=== PATIENT | female | born 1955 | race Hispanic/Latino ===

== ENCOUNTER 2021-01-03 06:31 | Emergency (ER) | payer MEDICARE, BC, OTHER ==
[~2021-01-03] VITALS: Ht 147.3 cm; Wt 51.7 kg
[2021-01-03] MEDS ORDERED: IBUPROFEN 400 MG TAB PO ONE (07:30)
[2021-01-03] MEDS ORDERED: IBUPROFEN400 MG PO (09:21)
== END 2021-01-03 11:01 | disposition home or self-care (01) ==
LOC: ER 07:04
DX: M25.562 Pain in left knee (principal); M25.572 Pain in left ankle and joints of left foot; W01.0XXA Fall on same level from slipping, tripping and stumbling without subsequent striking against object, initial encounter; Y93.01 Activity, walking, marching and hiking; I10 Essential (primary) hypertension; E11.9 Type 2 diabetes mellitus without complications
CPT/HCPCS: 99283